=== PATIENT | male | born 1995 | race Caucasian/White ===

== ENCOUNTER 2021-12-08 18:52 | Emergency (ER) | payer OTHER ==
[~2021-12-08] VITALS: Ht 167.6 cm; Wt 90.7 kg
[2021-12-08 18:52] VITALS: BP 116/71
--- NOTE | 2021-12-08 19:04 | NUR ---
JAY VIRK VIA GURNEY TO BED 06.
[2021-12-08] MEDS ORDERED: IBUPROFEN 800 MG TAB PO ONE (20:00)
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
[2021-12-08] MEDS ORDERED: IBUP-2213 PO (21:37)
[2021-12-08] MEDS ORDERED: ACET-10509 PO (21:37)
[2021-12-08 22:00] VITALS: BP 121/75
--- NOTE | 2021-12-08 22:00 | NUR ---
Patient discharged with v/s stable. Written and verbal after care instructions given and explained. Patient alert, oriented and verbalized understanding of instructions. Ambulatory with steady gait. All questions addressed prior to discharge. ID band removed. Patient advised to follow up with PMD. Rx of TYLENOL AND MOTRIN given. Opportunity to ask questions provided and answered.
--- NOTE | 2021-12-08 22:01 | NUR ---
Chart checked and completed.
== END 2021-12-08 22:00 | disposition home or self-care (01) ==
LOC: MED 18:52
DX: M79.632 Pain in left forearm (principal); R07.81 Pleurodynia; V89.2XXA Person injured in unspecified motor-vehicle accident, traffic, initial encounter; Y93.89 Activity, other specified; Y92.488 Other paved roadways as the place of occurrence of the external cause; Y99.8 Other external cause status
CPT/HCPCS: 71101; 73090; 81002; 99284